=== PATIENT | male | born 1950 | race Caucasian/White ===

== ENCOUNTER 2021-02-22 06:30 | Inpatient (IN) | payer MEDICARE ==
[2021-02-22] VITALS (11 sets, daily range): BP systolic 112–121; BP diastolic 57–74
[~2021-02-22] VITALS: Ht 185.4 cm; Wt 97.3 kg
[~2021-02-22 06:30] MED LIST: ASPI-1450 PO; CLOP75TA60 PO; LEVO100 PO; LISI-893 PO; METO50 PO; SIMV-259 PO
[2021-02-22] MEDS ORDERED: SODIUM CHLORIDE 0.9% 1,000 ML ONE (06:54)
[2021-02-22] MEDS ORDERED: SODIUM CHLORIDE 0.9% 1,000 ML IV ONE (07:00)
[2021-02-22 07:22] LABS: COVID AG,FIA SOURCE NASOPHARYNGEAL
[2021-02-22 07:33] LABS: ANION GAP 6 mmol/L (8-16); CALCIUM, TOTAL 8.4 mg/dL (8.8-10.5); CARBON DIOXIDE 29 mmol/L (22-29); CHLORIDE 104 mmol/L (98-107); CREATININE 0.94 mg/dL (0.60-1.30); GLOMERULAR FILTR. RATE CALC > 60 mL/min (>60); GLUCOSE,RANDOM 99 mg/dL (70-110); POTASSIUM 4.3 mmol/L (3.5-5.1); SODIUM SERUM 139 mmol/L (136-145); UREA NITROGEN, BLOOD 12 mg/dL (7-18)
[2021-02-22] MEDS ORDERED: MIDAZOLAM HCL 2 MG/2 ML VIAL ONE (08:36)
[2021-02-22] MEDS ORDERED: FentaNYL CITRATE PF 100 MCG/2 ML VIAL ONE ×2 (08:36→10:54)
[2021-02-22] MEDS ORDERED: SODIUM BICARBONATE 50 MEQ/50 ML VIAL ONE (08:37)
[2021-02-22] MEDS ORDERED: IOHEXOL 300 MG/ML 50 ML VIAL ONE (08:37)
[2021-02-22] MEDS ORDERED: LIDOCAINE/PF 1% 30 ML VIAL ONE (08:37)
[2021-02-22] MEDS ORDERED: 0.9% SODIUM CHLORIDE 10 ML SYRINGE IVP ONE (08:38)
[2021-02-22] MEDS ORDERED: FentaNYL CITRATE PF 100 MCG/2 ML VIAL IVP ONE ×3 (09:47→10:54)
[2021-02-22] MEDS ORDERED: LIDOCAINE 1% 30 ML/SOD BICARB 8.4% 4 ML SQ ONE (09:48)
[2021-02-22] MEDS ORDERED: HYDROCODONE/ACETAMINOPHEN 5-325 MG TABLET PO PRN (11:30)
[2021-02-22] MEDS ORDERED: ACETAMINOPHEN 325 MG TABLET PO PRN (11:30)
[2021-02-22] MEDS: LISINOPRIL 10 MG TABLET PO SCH (13:44)
[2021-02-22] MEDS: CeFAZolin 1 GM/DEXTROSE 50 ML IV SCH ×2 (15:20→20:18)
[2021-02-22] MEDS ORDERED: METOPROLOL TARTRATE 50 MG TABLET PO SCH (21:00)
[2021-02-22] MEDS ORDERED: SIMVASTATIN 10 MG TABLET PO SCH (21:00)
[2021-02-23 00:34] VITALS: BP 128/75
[2021-02-23] MEDS: CeFAZolin 1 GM/DEXTROSE 50 ML IV SCH (03:34)
[2021-02-23 05:27] VITALS: BP 125/73
[2021-02-23] MEDS ORDERED: LEVOTHYROXINE SODIUM 100 MCG TABLET PO SCH (06:30)
[2021-02-23 07:05] VITALS: BP 125/76
[2021-02-23] MEDS: LISINOPRIL 10 MG TABLET PO SCH (08:07)
[2021-02-23] MEDS ORDERED: ASPIRIN 81 MG CHEWABLE TABLET PO SCH (09:00)
[2021-02-23 11:07] VITALS: BP 126/65
== END 2021-02-23 14:10 | disposition home or self-care (01) | DRG 244 ==
LOC: SDS 06:30 → 5S 06:31
PROVIDERS: ADMIT Internal Medicine Cardiovascular Disease; ATTEND Internal Medicine Cardiovascular Disease
PROC: 02PA3MZ Removal of Cardiac Lead from Heart, Percutaneous Approach (ICD-10-PCS; principal; 2021-02-22)
PROC: 0JPT0PZ Removal of Cardiac Rhythm Related Device from Trunk Subcutaneous Tissue and Fascia, Open Approach (ICD-10-PCS; 2021-02-22)
PROC: 02HK3JZ Insertion of Pacemaker Lead into Right Ventricle, Percutaneous Approach (ICD-10-PCS; 2021-02-22)
PROC: 0JH606Z Insertion of Pacemaker, Dual Chamber into Chest Subcutaneous Tissue and Fascia, Open Approach (ICD-10-PCS; 2021-02-22)
PROC: 02H63JZ Insertion of Pacemaker Lead into Right Atrium, Percutaneous Approach (ICD-10-PCS; 2021-02-22)
DX: Z45.010 Encounter for checking and testing of cardiac pacemaker pulse generator [battery] (principal); I10 Essential (primary) hypertension; I25.2 Old myocardial infarction; Z20.822 Contact with and (suspected) exposure to COVID-19
CPT/HCPCS: 71045; 71046; 80048; 93005; J0690; J2250; J3010; J3490; J7030; Q9967; 36415-L1; 36415-TC; C9803